=== PATIENT | male | born 1955 | race Caucasian/White ===

== ENCOUNTER 2016-12-27 11:05 | Day surgery (SDC) | payer BC ==
--- NOTE | ~2016-12-27 | OP ---
Record Of Operation [facility] [address] [place]. [address] NAME: MACK GOSS : 57 STATUS : [place] [facility] [place] PAT#: [id number] AGE: 61 ADM/REG DATE : 12/27/16 MR#: [id number] REPORT SERV DATE: 12/27/16 DICTATED BY: JANE RICHARDS DATE: 12/27/16 REPORT STATUS : Draft TRANSCRIBED BY: TOMI DATE: 12/27/16 DATE OF PROCEDURE: 12/27/2016 PREPROCEDURE DIAGNOSIS: Anastomotic stricture. POSTPROCEDURE DIAGNOSIS: Anastomotic stricture. PROCEDURE: Flexible sigmoidoscopy with balloon dilation from 12-15 mm. PROCEDURE IN DETAIL: The patient was taken to the endoscopy suite and positioned in the left lateral decubitus position. Informed consent was obtained followed by IV sedation delivered by [employer]. Digital rectal exam was performed. Normal sphincter tone. No masses. The scope was navigated to the bifurcation where there appeared to be two openings. There was liquid stool coming from one of the openings. An attempt was made to navigate into this opening. However as the pediatric scope was advanced, the opening appeared to close or collapse, so the scope was changed to an EGD scope. The first opening was entered, this appeared to be a fistula tract. The second opening was entered, this was the anastomosis. Thick liquid stool was suctioned out. There was particulate matter that could not be suctioned. Then, the 8, 9, 10 cm balloon was advanced with the wire in the proximal bowel bringing it through the anastomotic stricture and inflating at 10, 11 and then 12 mm without much resistance, so then the balloon that was a 12, 13.5, and 15 was inflated. There was some resistance at 15, which was held for 60 seconds. Particulate matter was expelled. His abdomen was then soft and flat after suctioning. He tolerated the procedure well. JACOBO/TOMI Jane Richards M.D. / [id number] CC: Alexander Carey William C
[~2016-12-27 11:05] MED LIST: ASAB PO; AUG500 PO; AUG875 PO; BEN25 PO; CLARIT10 PO; EMERGEN-C; FLOMAX4 PO; LEVAQUIN5T PO; LEVAQUIN750 MG PO; LOP25 PO; MIRALAXPKT PO; MUCINEX D1 TA1 OR; MYTAB GAS125 MG PO; NORCO1 TA2 PO; PAIN MED; PEPCID40 MG PO; PHAZYME; ULTRAM50 PO; [UNRECOGNIZED DRUG - OTHER]; [UNRECOGNIZED DRUG - OTHER] NAS
== END 2016-12-27 23:59 | disposition home or self-care (01) ==
LOC: DMU 11:05
PROVIDERS: Surgery
PROC: 0D7N8ZZ Dilation of Sigmoid Colon, Via Natural or Artificial Opening Endoscopic (ICD-10-PCS; principal; 2016-12-27 12:30)
DX: K91.89 Other postprocedural complications and disorders of digestive system (principal); I48.2 Chronic atrial fibrillation; H91.90 Unspecified hearing loss, unspecified ear; J32.9 Chronic sinusitis, unspecified; N40.0 Benign prostatic hyperplasia without lower urinary tract symptoms; Z79.82 Long term (current) use of aspirin; Z79.899 Other long term (current) drug therapy; Z90.89 Acquired absence of other organs; Z98.890 Other specified postprocedural states
CPT/HCPCS: C1725